=== PATIENT | male | born 1990 | race Caucasian/White ===

== ENCOUNTER 2017-04-09 03:24 | Emergency (ER) | payer OTHER ==
[~2017-04-09] VITALS: Ht 188 cm; Wt 95.0 kg
[2017-04-09 03:37] VITALS: TEMP 36.9; Ht 188 cm; Wt 95.0 kg
--- NOTE | 2017-04-09 05:12 | EMERGENCY ROOM VISIT NOTE ---
ED Visit Note First contact with patient: 05:00 CHIEF COMPLAINT: Alcohol overdose HISTORY OF PRESENT ILLNESS: This 26-year-old male patient presents to the emergency department via ambulance for evaluation of an alcohol overdose. The patient presented to the emergency department BLS. He was apparently found standing upright, leaning against a car, and was asleep. PD found the patient and were unable to arouse him with the car Brian or airborne. The patient denies any complaints upon arrival. Upon my examination, he is sleeping and appears to be confused, however nursing staff was able to converse with him earlier. The patient denies any trauma, and states he has no complaints at this time. The patient states he drank "a lot" of alcohol. He denies any drugs. REVIEW OF SYSTEMS: Once the patient was able to reliably answer questions a review of systems was performed with positives and pertinent negatives listed in the history of present illness. All other systems were reviewed and are negative. ALLERGIES: None MEDICATIONS: None PMH: None SOCIAL HISTORY: The patient lives locally. He denies drug, tobacco use. PHYSICAL EXAM: VITALS: Vitals are noted on the nurse's note and reviewed by myself. Vital signs stable. GENERAL: Is a 26-year-old male, in no acute distress, nondiaphoretic, well- developed well-nourished. The patient is visibly intoxicated. SKIN: The skin was without obvious lacerations, abrasions, or rashes. There is no tenting of the skin. Capillary reflex less than 2 seconds. HEENT: Normocephalic, atraumatic. PERRLA. EOMI. Conjunctiva with mild injection without icterus. Tympanic membranes without erythema or effusion bilaterally no hemotympanum. External auditory canals are clear. Nares patent bilaterally. No epistaxis. Oropharynx without erythema or exudate. Uvula midline. Oral mucosal moist. No lymphadenopathy. Neck is supple without cervical spine tenderness. HEART: Regular rate and rhythm without murmurs gallops or rubs. Peripheral pulses 2+. LUNGS: Clear to auscultation bilaterally without wheezes, rales or rhonchi. ABDOMEN: Positive bowel sounds x 4. Normal tympanic percussion. Soft, nontender, without masses or organomegaly. MUSCULOSKELETAL: Gross motor function of the upper and lower extremities intact. The patient has a staggering gait. NEUROLOGIC: The patient is visibly intoxicated. Once they were more sober they were alert and oriented to person place and time. EMERGENCY DEPARTMENT COURSE: I examined the patient. Conservative care measures were instituted. The patient was placed in a prone position. Aspiration precautions were instituted. The patient was placed on velvet steamer and watched during the patient's stay. The patient's blood alcohol level was 290. The patient was signed out to Najma Kelley PA-C in the morning and advised that he could leave between [id number] if he awakens and is feeling well, or if he has a sober friend to pick him up. DIFFERENTIAL DIAGNOSIS: In the evaluation and treatment of this patient, the following differential diagnoses were considered: Hypoglycemia, Barbiturate Toxicity, Benzodiazepine Toxicity, Depression and Suicidality, Diabetic Ketoacidosis, Encephalitis, Ethylene Glycol Toxicity, Meningitis, Metabolic Acidosis, Opioid Toxicity, CVA, TIA, Intracranial Abnormality, Acute Psychosis, Amongst Others. DIAGNOSIS: Acute alcohol overdose Current/Historical Medications No Active Prescriptions or Reported Meds Allergies Coded Allergies: No Known Allergies (Unverified , 04/09/17) Vital Signs Date Time Temp Pulse Resp B/P (MAP) Pulse Ox O2 Delivery O2 Flow Rate FiO2 04/09/17 07:17 85 04/09/17 05:50 84 18 95/52 96 Room Air 04/09/17 03:37 36.9 73 18 118/77 96 Room Air 04/09/17 03:31 82 Laboratory Results Test 04/09/17 03:43 Ethyl Alcohol mg/dL 290.0 mg/dl (0-3) Departure Information Impression Primary Impression: Alcohol overdose Dispostion Home / Self-Care Condition GOOD Prescriptions No Active Prescriptions or Reported Meds Patient Instructions ED Overdose Alcohol, My [facility] Attentive.ly Additional Instructions He was seen in the emergency department today for an alcohol overdose. Please stay well hydrated and drink plenty of fluids. He may take Tylenol, 500-1000 mg every 6-8 hours as needed for pain. Do not drink any more alcohol or do any drugs. Follow-up with your PCP this week. Return to the emergency department for significant vomiting, confusion, dizziness, headache, chest pain, difficulty breathing, or other concerning symptoms. Problem Qualifiers Primary Impression: Alcohol overdose Encounter type: initial encounter Injury intent: accidental or unintentional Qualified Codes: T51.91XA - Toxic effect of unspecified alcohol , accidental (unintentional), initial encounter
[2017-04-09 10:01] VITALS: BP 105/63
[2017-04-09 10:06] VITALS: PULSE 99; O2SAT 96
--- NOTE | 2017-04-09 10:06 | EMERGENCY ROOM VISIT NOTE ---
ED Visit Note First contact with patient: 07:04 I was requested by Verónica Solis PA-C to recheck this patient before discharge. The patient was here for alcohol detoxification. At 10 AM I reevaluated the patient and he was alert and oriented 3. He did not have any physical complaints. The patient was discharged home with a friend driving.
== END 2017-04-09 10:19 | disposition home or self-care (01) ==
LOC: C.EDB 03:25
DX: T51.0X1A Toxic effect of ethanol, accidental (unintentional), initial encounter (principal); F10.920 Alcohol use, unspecified with intoxication, uncomplicated; Y90.8 Blood alcohol level of 240 mg/100 ml or more